=== PATIENT | female | born 1980 | race Caucasian/White ===

== ENCOUNTER 2022-11-30 20:15 | Inpatient (IN) | payer MEDICAID ==
[~2022-11-30] VITALS: Ht 154.9 cm; Wt 66.0 kg
[2022-11-30] MEDS ORDERED: LABETALOL HCL 5 MG/ML 4ML SYRINGE IV ONE ×2 (20:45→22:15)
[2022-11-30 21:05] LABS: Basophils # (auto) 0.1 10 ^3/uL (0-0.2); Eosinophils # (auto) 0.2 10 ^3/uL (0-0.8); Eosinophils % (auto) 3.6 % (0.0-7.0); Hematocrit 48.4 % (36.0-46.0); Hemoglobin 16.5 g/dL (12.2-16.2); Lymphocytes # (auto) 1.2 10 ^3/uL (0.4-5.4); Lymphocytes % (auto) 23.3 % (10.0-50.0); Mean Corpuscular Hemoglobin 32.6 pg (28.0-32.0); Mean Corpuscular Hgb Conc. 34.2 g/dL (32.0-36.0); Mean Corpuscular Volume 95.2 fL (80.0-100.0); Monocytes # (auto) 0.6 10 ^3/uL (0-1.3); Monocytes % (auto) 10.6 % (0.0-12.0); Neutrophils # (auto) 3.2 10 ^3/uL (1.6-8.6); Neutrophils % (auto) 61.5 % (37.0-80.0); Nucleated Red Blood Cells % 0.2 %; Red Blood Cells 5.08 10^6/uL (4.0-5.20); Red Cell Distribution Width 12.3 % (11.8-14.3); White Blood Cell 5.3 10^3/uL (4.4-10.8)
[2022-11-30 21:19] LABS: INR 0.87 (0.9-1.15); Partial Thromboplastin Time 29.2 sec (24.6-33.4)
[2022-11-30 21:23] LABS: Albumin 3.6 g/dL (3.4-5.0); Potassium 3.6 mmol/L (3.5-5.1)
[2022-11-30 21:28] LABS: BUN/Creatinine Ratio 10.3 (10.0-20.0); Bilirubin, Total 0.1 mg/dL (0.2-1.0); Magnesium 2.2 mg/dL (1.6-2.6); Total Protein 7.8 g/dL (6.4-8.2)
[2022-11-30 21:42] LABS: Urine Bacteria NONE SEEN /hpf (None Seen); Urine Blood Negative /uL (Negative); Urine Specific Gravity 1.012 (1.001-1.035); Urine WBC 1 /hpf (0 - 5)
[2022-11-30] MEDS ORDERED: MORPHINE SULFATE 4 MG/ML SYR/VIAL IV ONE (21:45)
[2022-11-30] MEDS ORDERED: ONDANSETRON HCL 4 MG/2 ML VIAL IV ONE (21:45)
[2022-12-01] VITALS (74 sets, daily range): BP systolic 114–155; BP diastolic 56–107
[2022-12-01] MEDS ORDERED: TEMAZEPAM 15 MG CAP PO PRN (01:30)
[2022-12-01] MEDS ORDERED: MORPHINE SULFATE INJ 2 MG/ml SYRG IV PRN (01:30)
[2022-12-01] MEDS ORDERED: ACETAMINOPHEN 325 MG TAB PO PRN (01:30)
[2022-12-01] MEDS ORDERED: NITROGLYCERIN 0.4 MG SL TAB SL PRN (01:30)
[2022-12-01] MEDS ORDERED: ONDANSETRON HCL 4 MG/2 ML VIAL IV PRN (01:30)
[2022-12-01] MEDS: PANTOPRAZOLE 40 MG TAB PO SCH (09:53)
[2022-12-01] MEDS: ASPirin 81 mg TAB PO SCH (09:54)
[2022-12-01] MEDS ORDERED: chlordiazePOXIDE HCL 5 MG CAP PO PRN (10:15)
[2022-12-01] MEDS ORDERED: NIFEdipine ER 30 MG TAB PO ONE (10:30)
[2022-12-01] MEDS: guaiFENesin-CODEINE Liq 5 ML UD PO PRN ×2 (10:46→19:28)
[2022-12-01] MEDS: chlordiazePOXIDE HCL 5 MG CAP PO SCH ×3 (11:45→22:32)
[2022-12-01] MEDS: IPRATROPIUM BROM 0.5 MG/2.5ML INH SOL NEB SCH ×2 (11:55→19:08)
[2022-12-01] MEDS: ALBUTEROL SULF 2.5 MG/0.5ML(0.5%) NEB SOLN NEB SCH ×2 (11:55→19:08)
[2022-12-01] MEDS ORDERED: FOLIC ACID 1 MG, MULTIPLE VITAMIN 10 ML, MAGNESIUM SULF SDV 50% 8 MEQ, THIAMINE INJ 100... INJ SCH ×5 (12:00)
[2022-12-01] MEDS ORDERED: LISINOPRIL 20 MG TAB PO ONE (12:15)
[2022-12-01] MEDS ORDERED: NICOTINE 7MG/24HR TOPICAL PATCH TD ONE (12:15)
[2022-12-01 16:53] LABS: Amphetamine Screen, Urine POSITIVE (NEGATIVE); Barbiturate Scree,Urine NEGATIVE (NEGATIVE); Benzodiazephine Screen, Urine NEGATIVE (NEGATIVE); Cannabinoid Screen, Urine NEGATIVE (NEGATIVE)
[2022-12-01 17:01] LABS: Cocaine Screen, Urine NEGATIVE (NEGATIVE); Opiate Scree,Urine NEGATIVE (NEGATIVE); Phencyclidine Screen, Urine NEGATIVE (NEGATIVE)
[2022-12-01] MEDS: BUDESONIDE (INHALATION) 0.5 MG/2 ML NEB NEB SCH (19:09)
[2022-12-01] MEDS ORDERED: ATORVASTATIN 20 MG TAB PO SCH (22:00)
[2022-12-02] VITALS (40 sets, daily range): BP systolic 97–144; BP diastolic 60–80
[2022-12-02 04:38] LABS: Basophils # (auto) 0 10 ^3/uL (0-0.2); Basophils % (auto) 0.5 % (0.0-2.0); Eosinophils # (auto) 0.1 10 ^3/uL (0-0.8); Eosinophils % (auto) 1.2 % (0.0-7.0); Hematocrit 40.6 % (36.0-46.0); Lymphocytes # (auto) 1.7 10 ^3/uL (0.4-5.4); Lymphocytes % (auto) 20.4 % (10.0-50.0); Mean Corpuscular Hemoglobin 33.1 pg (28.0-32.0); Mean Corpuscular Hgb Conc. 34.5 g/dL (32.0-36.0); Mean Corpuscular Volume 95.9 fL (80.0-100.0); Monocytes # (auto) 0.6 10 ^3/uL (0-1.3); Monocytes % (auto) 7.7 % (0.0-12.0); Neutrophils # (auto) 5.7 10 ^3/uL (1.6-8.6); Neutrophils % (auto) 70.2 % (37.0-80.0); Red Blood Cells 4.24 10^6/uL (4.0-5.20); Red Cell Distribution Width 12.3 % (11.8-14.3); White Blood Cell 8.1 10^3/uL (4.4-10.8)
[2022-12-02 04:57] LABS: Albumin 2.5 g/dL (3.4-5.0); Calcium 8.3 mg/dL (8.5-10.1); Potassium 3.8 mmol/L (3.5-5.1)
[2022-12-02 05:01] LABS: BUN/Creatinine Ratio 13.4 (10.0-20.0); Bilirubin, Total 0.3 mg/dL (0.2-1.0); Total Protein 5.8 g/dL (6.4-8.2)
[2022-12-02] MEDS: chlordiazePOXIDE HCL 5 MG CAP PO SCH ×2 (06:13→11:53)
[2022-12-02] MEDS: guaiFENesin-CODEINE Liq 5 ML UD PO PRN (06:16)
[2022-12-02] MEDS: BUDESONIDE (INHALATION) 0.5 MG/2 ML NEB NEB SCH (07:40)
[2022-12-02] MEDS: ALBUTEROL SULF 2.5 MG/0.5ML(0.5%) NEB SOLN NEB SCH ×2 (08:10→11:58)
[2022-12-02] MEDS: IPRATROPIUM BROM 0.5 MG/2.5ML INH SOL NEB SCH ×2 (08:10→11:58)
[2022-12-02] MEDS ORDERED: NIFE1TAB31 PO (09:10)
[2022-12-02] MEDS ORDERED: THIA100T5 PO (09:10)
[2022-12-02] MEDS: PANTOPRAZOLE 40 MG TAB PO SCH (09:50)
[2022-12-02] MEDS: ASPirin 81 mg TAB PO SCH (09:52)
[2022-12-02] MEDS ORDERED: FOLIC ACID 1 MG TAB PO SCH (10:00)
[2022-12-02] MEDS ORDERED: NICOTINE 7MG/24HR TOPICAL PATCH TD SCH (10:00)
[2022-12-02] MEDS ORDERED: LISINOPRIL 20 MG TAB PO SCH (10:00)
[2022-12-02] MEDS ORDERED: THIAMINE 100mg/ml INJ (200mg/2ml VIAL) IV SCH (10:00)
[2022-12-02] MEDS ORDERED: NIFEdipine ER 30 MG TAB PO SCH (10:00)
[2022-12-02] MEDS ORDERED: MULTIPLE VITAMIN TAB PO SCH (10:00)
[2022-12-02] MEDS ORDERED: ALBUAER3 IN (11:06)
== END 2022-12-02 13:30 | disposition home or self-care (01) | DRG 199 ==
LOC: ER 20:15 → TELE 12-01 01:31 → ICU WEST 12-01 05:08
PROVIDERS: ADMIT Nurse Practitioner; ATTEND Nurse Practitioner Acute Care
DX: I16.1 Hypertensive emergency (principal); F10.239 Alcohol dependence with withdrawal, unspecified; F17.210 Nicotine dependence, cigarettes, uncomplicated; F15.10 Other stimulant abuse, uncomplicated; Y90.9 Presence of alcohol in blood, level not specified; I10 Essential (primary) hypertension; Z80.0 Family history of malignant neoplasm of digestive organs; Z90.710 Acquired absence of both cervix and uterus
CPT/HCPCS: 36415; 70450; 71045; 80053; 80307; 80320; 81001; 83735; 83880; 84443; 84484; 85025; 85610; 85730; 87081; 93005; 93306; 94640; 96374; 96375; G0378; J2405; J3490

== ENCOUNTER 2024-02-15 16:10 | Inpatient (IN) | payer MEDICAID ==
[~2024-02-15] VITALS: Ht 154.9 cm; Wt 67.0 kg
[~2024-02-15 16:10] MED LIST: ALBUAER3 IN; NIFE1TAB31 PO; THIA100T5 PO
[2024-02-15 16:38] VITALS: PULSE 84; RESP 19; O2SAT 96
[2024-02-15 16:47] LABS: Basophils # (auto) 0.1 10 ^3/uL (0-0.2); Basophils % (auto) 1.1 % (0.0-2.0); Eosinophils # (auto) 0.2 10 ^3/uL (0-0.8); Eosinophils % (auto) 2.1 % (0.0-7.0); Hematocrit 44.1 % (36.0-46.0); Hemoglobin 15.2 g/dL (12.2-16.2); Lymphocytes # (auto) 1.9 10 ^3/uL (0.4-5.4); Lymphocytes % (auto) 23.5 % (10.0-50.0); Mean Corpuscular Hemoglobin 32.2 pg (28.0-32.0); Mean Corpuscular Hgb Conc. 34.6 g/dL (32.0-36.0); Mean Corpuscular Volume 93.1 fL (80.0-100.0); Monocytes # (auto) 0.7 10 ^3/uL (0-1.3); Monocytes % (auto) 8.4 % (0.0-12.0); Neutrophils # (auto) 5.3 10 ^3/uL (1.6-8.6); Neutrophils % (auto) 64.9 % (37.0-80.0); Red Blood Cells 4.74 10^6/uL (4.0-5.20); Red Cell Distribution Width 12.9 % (11.8-14.3); White Blood Cell 8.2 10^3/uL (4.4-10.8)
[2024-02-15 17:16] LABS: Alanine Aminotransferase 37 U/L (7-40); Albumin 4.8 g/dL (3.2-4.8); Alkaline Phosphatase 129 U/L (46-116); Anion Gap 12 (5-15); Aspartate Aminotransferase 30 U/L (13-40); BUN/Creatinine Ratio 18.7 (10.0-20.0); Bilirubin, Total 0.4 mg/dL (0.2-1.0); Blood Urea Nitrogen 20 mg/dL (9-23); Carbon Dioxide 20 mmol/L (20-30); Chloride 107 mmol/L (98-107); Glucose 109 mg/dL (74-106); Potassium 3.5 mmol/L (3.5-5.1); Sodium 139 mmol/L (136-145); Total Protein 7.3 g/dL (5.7-8.2)
[2024-02-15] MEDS: LORazepam 2MG/ML-1ML VIAL IV ONE (18:20)
[2024-02-15 19:30] VITALS: PULSE 80; RESP 15; O2SAT 99
[2024-02-15] MEDS ORDERED: ACETAMINOPHEN 325 MG TAB PO PRN (22:00)
[2024-02-15] MEDS ORDERED: ONDANSETRON HCL 4 MG/2 ML VIAL IV PRN (22:00)
[2024-02-15] MEDS: ATORVASTATIN 20 MG TAB PO SCH (22:31)
[2024-02-15] MEDS ORDERED: MORPHINE SULFATE INJ 2 MG/ml SYRG IV PRN (23:00)
[2024-02-15] MEDS ORDERED: NITROGLYCERIN 0.4 MG SL TAB SL PRN (23:00)
[2024-02-16] VITALS (8 sets, daily range): BP systolic 113–155; BP diastolic 77–97; PULSE 56–85; RESP 18–20; TEMP 97.8–98.3; O2SAT 97–99
[2024-02-16 06:56] LABS: Anion Gap 5 (5-15); Carbon Dioxide 24 mmol/L (20-30); Chloride 108 mmol/L (98-107); Potassium 3.9 mmol/L (3.5-5.1); Sodium 137 mmol/L (136-145)
[2024-02-16 06:57] LABS: Calcium 9.1 mg/dL (8.5-10.1)
[2024-02-16 07:02] LABS: BUN/Creatinine Ratio 14.3 (10.0-20.0); Blood Urea Nitrogen 12 mg/dL (9-23); Glucose 86 mg/dL (74-106)
[2024-02-16] MEDS: ASPirin 81 mg TAB PO SCH (09:32)
[2024-02-16] MEDS: NIFEdipine ER 30 MG TAB PO SCH (09:33)
[2024-02-16] MEDS: TEMAZEPAM 15 MG CAP PO ONE (09:42)
[2024-02-16 17:29] LABS: Amphetamine Screen, Urine Pos (NEGATIVE); Barbiturate Scree,Urine Neg (NEGATIVE); Benzodiazephine Screen, Urine Neg (NEGATIVE); Cannabinoid Screen, Urine Neg (NEGATIVE); Cocaine Screen, Urine Neg (NEGATIVE); Opiate Scree,Urine Neg (NEGATIVE); Phencyclidine Screen, Urine Neg (NEGATIVE)
[2024-02-16] MEDS: THIAMINE 100mg/ml INJ (200mg/2ml VIAL) IV ONE (17:44)
[2024-02-16] MEDS: FOLIC ACID 1 MG TAB PO ONE (17:45)
[2024-02-16 18:04] LABS: Urine Bacteria FEW /hpf (None Seen); Urine Blood Negative /uL (Negative); Urine Clarity Turbid (Clear); Urine Color Light-Yellow (Yellow); Urine Mucus FEW (None Seen); Urine Protein, UAD TRACE (Negative); Urine Specific Gravity 1.022 (1.001-1.035); Urine Urobilinogen Normal (Negative); Urine WBC 33 /hpf (0 - 5)
[2024-02-16] MEDS: LORazepam 2MG/ML-1ML VIAL IV PRN (20:45)
[2024-02-17] VITALS (12 sets, daily range): BP systolic 126–150; BP diastolic 69–91; PULSE 59–66; RESP 12–20; TEMP 97.8–97.9; O2SAT 94–99
[2024-02-17 06:15] LABS: Basophils # (auto) 0.1 10 ^3/uL (0-0.2); Basophils % (auto) 0.8 % (0.0-2.0); Eosinophils # (auto) 0.2 10 ^3/uL (0-0.8); Eosinophils % (auto) 2.7 % (0.0-7.0); Hematocrit 39.4 % (36.0-46.0); Hemoglobin 13.4 g/dL (12.2-16.2); Lymphocytes # (auto) 1.9 10 ^3/uL (0.4-5.4); Lymphocytes % (auto) 25.1 % (10.0-50.0); Mean Corpuscular Hemoglobin 32.8 pg (28.0-32.0); Mean Corpuscular Volume 96.4 fL (80.0-100.0); Monocytes # (auto) 0.7 10 ^3/uL (0-1.3); Monocytes % (auto) 9.9 % (0.0-12.0); Neutrophils # (auto) 4.5 10 ^3/uL (1.6-8.6); Neutrophils % (auto) 61.5 % (37.0-80.0); Red Blood Cells 4.09 10^6/uL (4.0-5.20); Red Cell Distribution Width 12.5 % (11.8-14.3); White Blood Cell 7.4 10^3/uL (4.4-10.8)
[2024-02-17 06:30] LABS: INR 0.92 (0.9-1.15); Partial Thromboplastin Time 25.4 SEC (24.5-34.5); Prothrombin Time 9.8 sec (9.3-11.8)
[2024-02-17 06:35] LABS: Alanine Aminotransferase 23 U/L (7-40); Albumin 3.5 g/dL (3.2-4.8); Alkaline Phosphatase 99 U/L (46-116); Anion Gap 4 (5-15); Aspartate Aminotransferase 18 U/L (13-40); BUN/Creatinine Ratio 16.9 (10.0-20.0); Bilirubin, Total 0.3 mg/dL (0.2-1.0); Blood Urea Nitrogen 14 mg/dL (9-23); Calcium 8.8 mg/dL (8.5-10.1); Carbon Dioxide 26 mmol/L (20-30); Chloride 107 mmol/L (98-107); Glucose 93 mg/dL (74-106); Potassium 3.9 mmol/L (3.5-5.1); Sodium 137 mmol/L (136-145); Total Protein 5.6 g/dL (5.7-8.2)
[2024-02-17] MEDS ORDERED: HEPARIN SODIUM (PORCINE) 5000 UNITS/ML 1ML VIAL ONE (07:24)
[2024-02-17] MEDS ORDERED: IOHEXOL 350 MG/ML 100ML IJ ONE (07:25)
[2024-02-17] MEDS ORDERED: IODIXANOL 320MG/ML 100ML BTL IV ONE ×2 (07:25→07:41)
[2024-02-17] MEDS ORDERED: fentaNYL CITRATE 100 MCG/2 ML VL ONE (07:25)
[2024-02-17] MEDS ORDERED: MIDAZOLAM HCL 2MG/2ML 2ml VIAL (1mg/ml) ONE (07:25)
[2024-02-17] MEDS ORDERED: HEPARIN IN NS 1000Units/500mL 1,500 ML ONE (07:27)
[2024-02-17] MEDS ORDERED: LIDOCAINE 2%HCL (LOCAL ANESTH.) INJ 20ML MDV ONE ×2 (07:27→07:46)
[2024-02-17] MEDS ORDERED: VERAPAMIL 2.5MG/ML INJ 2ML VIAL IV ONE (07:27)
[2024-02-17] MEDS: CARVEDILOL 12.5 MG TAB PO SCH ×2 (10:00→22:21)
[2024-02-17] MEDS: THIAMINE 100mg/ml INJ (200mg/2ml VIAL) IV SCH (11:56)
[2024-02-17] MEDS: FOLIC ACID 1 MG TAB PO SCH (11:59)
[2024-02-17] MEDS: cefTRIAXone 1GM/50ML D5W 50 ML IV ONE (12:11)
[2024-02-17] MEDS: NIFEdipine ER 30 MG TAB PO SCH (22:21)
[2024-02-18 01:00] VITALS: BP 120/61; PULSE 60; RESP 17; TEMP 98; O2SAT 97
[2024-02-18 05:00] VITALS: BP 124/54; PULSE 58; RESP 18; TEMP 97.9; O2SAT 94
[2024-02-18 05:56] LABS: Triglycerides 139 mg/dL (< 150)
[2024-02-18 05:57] LABS: LDL Cholesterol 87 mg/dL (< 100)
[2024-02-18 05:58] LABS: Cholesterol 151 mg/dL (< 200); HDL Cholesterol 50 mg/dL (40-59)
[2024-02-18 08:00] VITALS: PULSE 63
[2024-02-18 09:00] VITALS: BP 144/83; PULSE 63; RESP 18; TEMP 98.5; O2SAT 97
[2024-02-18] MEDS: cefTRIAXone 1GM/50ML D5W 50 ML IV SCH (09:00)
[2024-02-18] MEDS ORDERED: CEPH250C PO (10:07)
[2024-02-18] MEDS ORDERED: NIFE1TAB30 PO (10:07)
== END 2024-02-18 15:00 | disposition home or self-care (01) | DRG 190 ==
LOC: ER 16:10 → EDBD 16:10 → EDUNIT# 16:10 → TELE 22:48 → TELE-EAST 22:48
PROVIDERS: ADMIT Internal Medicine; ATTEND Internal Medicine
PROC: 4A023N7 Measurement of Cardiac Sampling and Pressure, Left Heart, Percutaneous Approach (ICD-10-PCS; principal; 2024-02-17)
PROC: B211YZZ Fluoroscopy of Multiple Coronary Arteries using Other Contrast (ICD-10-PCS; 2024-02-17)
DX: I21.4 Non-ST elevation (NSTEMI) myocardial infarction (principal); I50.30 Unspecified diastolic (congestive) heart failure; I11.0 Hypertensive heart disease with heart failure; F10.10 Alcohol abuse, uncomplicated; I20.89 Other forms of angina pectoris; F17.210 Nicotine dependence, cigarettes, uncomplicated; F41.9 Anxiety disorder, unspecified; N39.0 Urinary tract infection, site not specified; Z79.82 Long term (current) use of aspirin; Z82.3 Family history of stroke; Z82.0 Family history of epilepsy and other diseases of the nervous system; Z80.0 Family history of malignant neoplasm of digestive organs; Z90.710 Acquired absence of both cervix and uterus
CPT/HCPCS: 36415; 71045; 80048; 80053; 80061; 80307; 81001; 83036; 84484; 84702; 85025; 85610; 85730; 86850; 86900; 86901; 87086; 93005; 93306; 93458; 99152; G0378; J2250; Q9967

== ENCOUNTER 2025-03-16 15:48 | Emergency (ER) | payer MEDICAID ==
[~2025-03-16] VITALS: Ht 167.6 cm; Wt 68.2 kg
[~2025-03-16 15:48] MED LIST changes: +CEPH250C PO; +NIFE1TAB30 PO
--- NOTE | 2025-03-16 16:03 | ED.PDOC ---
History of Present Illness HPI Comments 44 y/o F is BIBA for c/c anxiety, with associated shortness of breath. Per EMS report, patient has a significant history of anxiety, hypertension, homelessness, and polysubstance abuse. She called after beginning to experience symptoms, [place] after taking mushroom gummies today and drinking heavily last night at a bar. Patient denies any chest pain, palpitations, dizziness, lightheadedness, dehydration, or further associated symptoms. Was hypertensive, tachycardic and tachypneic at arrival. Chief Complaint: Anxiety Time Seen by MD: 15:50 Primary Care Provider: BRADLEY Larson Notes: Nurses Notes, Stockroom Helper Notes, Medications, Allergies Allergies: Coded Allergies: NO KNOWN ALLERGIES (Unverified , 02/24/12) Home Meds Active Scripts Nifedipine (Nifedipine Er) 60 Mg Tab, 1 TAB PO BID for 30 Days, #60 TAB 5 Refills Prov:KELLIE JALLOH MD 02/18/24 Cephalexin (KEFLEX CAPSULE) 250 Mg Cp, 1 CAP PO TID for 5 Days, #15 CAP Prov:KELLIE JALLOH MD 02/18/24 Albuterol Sulfate (VENTOLIN MDI) 90 Mcg Ih, 90 MCG IN Q4HP PRN for 60 Days, #1 INH 2 puffs every 4 hours as needed dyspnea Prov:BENITA GUPTA NP 12/02/22 Thiamine Hcl (Thiamine Hcl) 100 Mg Tab, 1 TAB PO DAILY, #60 TAB 2 Refills Prov:BENITA GUPTA NP 12/02/22 Nifedipine (Nifedipine Er) 30 Mg Tab, 60 MG PO DAILY for 60 Days, #120 TAB Prov:BENITA GUPTA NP 12/02/22 Information Source: Patient, Emergency Med Personnel Mode of Arrival: Ambulatory Severity: Moderate Timing: Hours Duration: Since onset Prehospital treatment: 12 Lead EKG, Director [employer] Past Medical History PAST MEDICAL HISTORY: HTN Surgical History: Hysterectomy ROPER OPERATOR History: No Pertinent ROPER OPERATOR History Family History Family History: Reviewed,noncontributory to illness, No family hx of Heart jocelyne Social History Smoker: Cigarettes, Less Than 1 Pack/Day Alcohol: Heavy Drugs: Other Lives In: Home Constitutional: reports: weakness; denies: chills, diaphoresis, fatigue, fever, malaise, sweats, others EENTM: denies: blurred vision, double vision, ear bleeding, ear discharge, ear drainage, ear pain, ear ringing, eye pain, eye redness, hearing loss, mouth pain, mouth swelling, nasal discharge, nose bleeding, nose congestion, nose pain, photophobia, tearing, throat pain, throat swelling, voice changes, others Respiratory: reports: SOB at rest; denies: cough, hemoptysis, orthopnea, shortness of breath, SOB with excertion, stridor, wheezing, others Cardiovascular: denies: chest pain, dizzy spells, diaphoresis, Dyspnea on exertion, edema, irregular heart beat, left arm pain, lightheadedness, palpitations, PND, syncope, others Gastrointestinal: denies: abdomen distended, abdominal pain, blood streaked bowels, constipated, diarrhea, dysphagia, difficulty swallowing, hematemesis, melena, nausea, poor appetite, poor fluid intake, rectal bleeding, rectal pain, vomiting, others Genitourinary: denies: abnormal vagina bleeding, burning, dyspareunia, dysuria, flank pain, frequency, hematuria, incontinence, pain, , vagina discharge, urgency, others Neurological: denies: dizziness, fainting, headache, left sided numbness, left sided weakness, numbness, paresthesia, pre-existing deficit, right sided numbness, right sided weakness, seizure, speech problems, tingling, tremors, weakness, others Musculoskeletal: denies: back pain, gout, joint pain, joint swelling, muscle pain, muscle stiffness, neck pain, others Integumetry: denies: bruises, change in color, change in hair/nails, dryness, laceration, lesions, lumps, rash, wounds, others Allergic/Immunocompromised: denies: Difficulty Healing, Frequent Infections, Hives, Itching, others Hematologic/Lymphatic: denies: anemia, blood clots, easy bleeding, easy bruising, swollen glands, others Endocrine: denies: excessive hunger, excessive sweating, excessive thirst, excessive urination, flushing, intolerance to cold, intolerance to heat, unexplained weight gain, unexplained weight loss, others Psychiatric: reports: anxiety, depression; denies: bipolar disorder, hopeless, panic disorder, schizophrenia, sleepless, suicidal, others All Other Systems: Reviewed and Negative (Comprehensive review of systems are negative unless otherwise stated in HPI) Physical Exam General Appearance: Moderate Distress (Patient was in moderate distress due to anxiety related issues. Patient was tearful at time of evaluation.), Normal HEENT: Normal ENT Inspection, Pharynx Normal, TMs Normal Neck: Full Range of Motion, Non-Tender, Normal, Normal Inspection Respiratory: Chest Non-Tender, Lungs Clear, No Accessory Muscle Use, No Respiratory Distress, Normal Breath Sounds Cardiovascular: No Edema, No JVD, No Murmur, No Gallop, Normal Peripheral Pulses, Regular Rate/Rhythm Breast Exam: Deferred Gastrointestinal: No Organomegaly, Non Tender, No Pulsatile Mass, Normal Bowel Sounds, Soft Genitalia: Deferred Pelvic: Deferred Rectal: Deferred Extremities: No calf tenderness, Normal capillary refill, Normal inspection, Normal range of motion, Non-tender, No pedal edema Neurologic: Alert Cerebellar Function: NOT DONE Reflexes: NOT DONE Skin: Dry, Normal Color, Warm Lymphatic: No Adenopathy Was a procedure done? Was a procedure done?: No Differential Dx Considerations may include: anxiety, polysubstance abuse/dependency, dehydration, electrolyte imbalance, panic attack, among others X-Ray, Labs, Meds, VS Vital Signs Date Time Temp Pulse Resp B/P (MAP) Pulse Ox O2 Delivery O2 Flow Rate FiO2 03/16/25 17:36 97.8 86 16 141/80 (100) 95 97.8 03/16/25 17:36 86 16 95 Room Air 03/16/25 15:55 98.0 103 22 150/82 94 98.0 Lab Test 03/16/25 17:28 03/16/25 16:44 Range/Units Urine Color Light-yellow Yellow Urine Clarity Clear Clear Urine pH 5.0 5.0-9.0 Urine Specific [place] 1.015 1.001-1.035 Urine Protein Negative Negative Urine Ketones 1+ H Negative Urine Blood Negative Negative /uL Urine Nitrite Negative Negative Urine Bilirubin Negative Negative Urine Urobilinogen Normal Negative mg/dL Urine Leukocyte Esterase Negative Negative /uL Urine Glucose Normal Normal mg/dL White Blood Count 8.3 4.4-10.8 10^3/uL Red Blood Count 4.73 4.0-5.20 10^6/uL Hemoglobin 15.0 12.2-16.2 g/dL Hematocrit 44.1 36.0-46.0 % Mean Corpuscular Volume 93.4 80.0-100.0 fL Mean Corpuscular Hemoglobin 31.7 28.0-32.0 pg Mean Corpuscular Hemoglobin Concent 33.9 32.0-36.0 g/dL Red Cell Distribution Width 12.7 11.8-14.3 % Platelet Count 251 140-450 10^3/uL Mean Platelet Volume 9.2 6.9-10.8 fL Neutrophils (%) (Auto) 61.7 37.0-80.0 % Lymphocytes (%) (Auto) 25.7 10.0-50.0 % Monocytes (%) (Auto) 8.5 0.0-12.0 % Eosinophils (%) (Auto) 2.7 0.0-7.0 % Basophils (%) (Auto) 1.4 0.0-2.0 % Neutrophils # (Auto) 5.1 1.6-8.6 10 ^3/uL Lymphocytes # (Auto) 2.1 0.4-5.4 10 ^3/uL Monocytes # (Auto) 0.7 0-1.3 10 ^3/uL Eosinophils # (Auto) 0.2 0-0.8 10 ^3/uL Basophils # (Auto) 0.1 0-0.2 10 ^3/uL Nucleated Red Blood Cells 0.1 % Sodium Level 143 136-145 mmol/L Potassium Level 3.6 3.5-5.1 mmol/L Chloride Level 108 H 98-107 mmol/L Carbon Dioxide Level 19 L 20-31 mmol/L Anion Gap 16 H 5-15 Blood Urea Nitrogen 19 9-23 mg/dL Creatinine 1.02 0.550-1.02 mg/dL Glomerular Filtration Rate Calc 70 >90 mL/min BUN/Creatinine Ratio 18.6 10.0-20.0 Serum Glucose 91 74-106 mg/dL Calcium Level 9.2 8.7-10.4 mg/dL Current Medications Medications (Trade) Dose Ordered Sig/Sandy Route Start Time Stop Time Status Last Admin Sodium Chloride 1,000 ml @ 1,000 mls/hr Q1H ONCE IV 03/16/25 16:00 03/16/25 16:59 DC 03/16/25 17:29 Alprazolam (Xanax Tablet) 0.5 mg ONCE ONCE PO 03/16/25 16:00 03/16/25 16:01 DC 03/16/25 17:26 X-Ray, Labs, Meds, VS Comment All studies performed the ED were evaluated by me personally. Laboratories and urinalysis were unremarkable for any systemic concerns. Patient appears to be suffering from anxiety due to illicit drug use. Patient was provided with some Xanax to aid in her anxiety as well as fluid resuscitation. Social service is not at the facility today and therefore, unable to provide a social service consult for the patient. Advised to return to ED on Tuesday if she would like to have assistance with housing concerns. Time of 1ST Reevaluation: 19:21 Reevaluation 1ST: Improved Consultation: PCP Patient Education/Counseling: Diagnosis, Treatment, Need For Follow Up Family Education/Counseling: Diagnosis, Treatment, No Family Present SEPSIS Sepsis Screen Recent Procedure: No On Antibiotic Therapy: No Respiratory Rate >20: No Heart Rate >90: No Temp<36 C (96.8 F) or >38.3 C: No SBP <90 or MAP <65 mmHG: No New Acute Mental Status Change: No Is the patient on CPAP, BIPAP,: No Physician Orders Heplock Iv (03/16/25 ) * Nurse Discharge Planner Consult (03/16/25 ) Vital Signs Date Time Temp Pulse Resp B/P (MAP) Pulse Ox O2 Delivery O2 Flow Rate FiO2 03/16/25 17:36 97.8 86 16 141/80 (100) 95 97.8 03/16/25 17:36 86 16 95 Room Air 03/16/25 15:55 98.0 103 22 150/82 94 98.0 Laboratory Tests Test 03/16/25 16:44 White Blood Count 8.3 10^3/uL (4.4-10.8) Medications Medications Dose Ordered Sig/Sandy Route Start Time Stop Time Status Last Admin Dose Admin Alprazolam 0.5 mg ONCE ONCE PO 03/16/25 16:00 03/16/25 16:01 DC 03/16/25 17:26 Sodium Chloride 1,000 ml @ 1,000 mls/hr Q1H ONCE IV 03/16/25 16:00 03/16/25 16:59 DC 03/16/25 17:29 Departure 1 Departure Time of Disposition: 19:21 Impression: Primary Impression: Anxiety Additional Impression: Illicit drug use Disposition: HOME / SELF CARE / HOMELESS Condition: Stable Additional Instructions: Advised patient utilize medication as needed and additionally, patient can return to this facility on Tuesday if she would like assistance with housing concerns. Patient should practice good hydration and healthy nutrition. Patient should cease all alcohol and illicit drug use immediately and follow up with a support groups such as alcoholics anonymous and narcotics anonymous. e-Prescriptions Acetaminophen (Acetaminophen) 500 Mg Tab 500 MG PO Q4HP PRN, #20 TAB Prov: AMNJIT SPEARS PAC 03/16/25 Alprazolam (Xanax) 0.5 Mg Tb 1 TAB PO Q8HP PRN, #6 TAB Prov: MANJIT SPEARS PAC 03/16/25 Discharged With: Self, Friend Critical Care Note Critical Care Time?: No Stability Stability form required: No Heart Score Heart Score: Heart Score Response (Comments) Value History N/A 0 EKG N/A 0 Age N/A 0 Risk Factors N/A 0 Troponin N/A 0 Total 0 I personally scribed for MANJIT SPEARS PAC ([email or web address]) on 03/16/25 at 16:03. Electronically submitted by Noam Phillip ([email or web address]). MANJIT SPEARS PAC Mar 16, 2025 16:03
[2025-03-16 16:53] LABS: Hematocrit 44.1 % (36.0-46.0); Hemoglobin 15.0 g/dL (12.2-16.2); Mean Corpuscular Hemoglobin 31.7 pg (28.0-32.0); Mean Corpuscular Volume 93.4 fL (80.0-100.0); Nucleated Red Blood Cells % 0.1 %
[2025-03-16 17:00] LABS: Potassium 3.6 mmol/L (3.5-5.1); Sodium 143 mmol/L (136-145)
[2025-03-16 17:02] LABS: Anion Gap 16 (5-15); Calcium 9.2 mg/dL (8.7-10.4)
[2025-03-16 17:03] LABS: Carbon Dioxide 19 mmol/L (20-31); Chloride 108 mmol/L (98-107)
[2025-03-16 17:07] LABS: BUN/Creatinine Ratio 18.6 (10.0-20.0); Blood Urea Nitrogen 19 mg/dL (9-23); Glucose 91 mg/dL (74-106)
[2025-03-16] MEDS: ALPRAZolam 0.5 MG TAB PO ONE (17:26)
[2025-03-16] MEDS: SODIUM CHLORIDE 0.9% 1,000 ML IV ONE (17:29)
[2025-03-16 17:36] VITALS: BP 141/80; PULSE 86; RESP 16; TEMP 97.8; O2SAT 95
[2025-03-16 19:08] LABS: Urine Protein, UAD Negative (Negative)
[2025-03-16] MEDS ORDERED: ALPR0.5T PO (19:23)
[2025-03-16] MEDS ORDERED: ACET500T58 PO (19:23)
== END 2025-03-16 19:30 | disposition home or self-care (01) ==
LOC: EDBD 15:48 → EDSEX 15:48 → ER 15:48
DX: F19.10 Other psychoactive substance abuse, uncomplicated (principal); F41.9 Anxiety disorder, unspecified; I10 Essential (primary) hypertension; F17.210 Nicotine dependence, cigarettes, uncomplicated; Z79.899 Other long term (current) drug therapy; Z90.710 Acquired absence of both cervix and uterus
CPT/HCPCS: 36415; 80048; 81003; 85025; 96360; 99283; J7030

== ENCOUNTER 2025-05-12 13:46 | Emergency (ER) | payer MEDICAID ==
[~2025-05-12] VITALS: Ht 175.3 cm; Wt 69.3 kg
[~2025-05-12 13:46] MED LIST changes: +ACET500T58 PO; +ALPR0.5T PO
--- NOTE | 2025-05-12 15:59 | ED.PDOC ---
GI ASSESSMENT HPI Comments 44 y/o F, with PMHx of HTN presents to the ED for CC of abdominal pain. Patient states, she has been experiencing suprapubic abdominal pain x2days with associated blood stools x1day. Patient further relays, feeling febrile and having intermittent chills. Patient denies nausea, vomiting, diarrhea, fatigue, or weakness. No other symptoms or modifying factors are present at this time. Chief Complaint: Abdominal Pain Time Seen by MD: 15:40 Primary Care Provider: BRADLEY Larson Notes: Nurses Notes, Medications, Allergies Allergies: Coded Allergies: NO KNOWN ALLERGIES (Unverified , 02/24/12) Home Meds Active Scripts Acetaminophen (Acetaminophen) 500 Mg Tab, 500 MG PO Q4HP PRN, #20 TAB Prov:MANJIT SPEARS PAC 03/16/25 Alprazolam (Xanax) 0.5 Mg Tb, 1 TAB PO Q8HP PRN, #6 TAB Prov:MANJIT SPEARS PAC 03/16/25 Nifedipine (Nifedipine Er) 60 Mg Tab, 1 TAB PO BID for 30 Days, #60 TAB 5 Refills Prov:KELLIE JALLOH MD 02/18/24 Cephalexin (KEFLEX CAPSULE) 250 Mg Cp, 1 CAP PO TID for 5 Days, #15 CAP Prov:KELLIE JALLOH MD 02/18/24 Albuterol Sulfate (VENTOLIN MDI) 90 Mcg Ih, 90 MCG IN Q4HP PRN for 60 Days, #1 INH 2 puffs every 4 hours as needed dyspnea Prov:BENITA GUPTA NP 12/02/22 Thiamine Hcl (Thiamine Hcl) 100 Mg Tab, 1 TAB PO DAILY, #60 TAB 2 Refills Prov:BENITA GUPTA NP 12/02/22 Nifedipine (Nifedipine Er) 30 Mg Tab, 60 MG PO DAILY for 60 Days, #120 TAB Prov:BENITA GUPTA NP 12/02/22 Information Source: Patient Mode of Arrival: Ambulatory Timing: Days Duration: Since onset Prehospital treatment: None Vomitus: None Stool: Blood Streaked Severity: Moderate Recent: None Recent Hx of: None Pain Location: Suprapubic Modifying Factors: Nothing Associated sign and symptoms: Abdominal Pain, Blood in Stool Past Medical History PAST MEDICAL HISTORY: HTN Surgical History: Hysterectomy SPIRITUAL CARE COORDINATOR History: No Pertinent SPIRITUAL CARE COORDINATOR History Family History Family History: Reviewed,noncontributory to illness, No family hx of Heart jocelyne Social History Smoker: Cigarettes, Less Than 1 Pack/Day Alcohol: Heavy Drugs: Other Lives In: Home Constitutional: denies: chills, diaphoresis, fatigue, fever, malaise, sweats, w eakness, others EENTM: denies: blurred vision, double vision, ear bleeding, ear discharge, ear drainage, ear pain, ear ringing, eye pain, eye redness, hearing loss, mouth pain, mouth swelling, nasal discharge, nose bleeding, nose congestion, nose pain, photophobia, tearing, throat pain, throat swelling, voice changes, others Respiratory: denies: cough, hemoptysis, orthopnea, SOB at rest, shortness of breath, SOB with excertion, stridor, wheezing, others Cardiovascular: denies: chest pain, dizzy spells, diaphoresis, Dyspnea on exertion, edema, irregular heart beat, left arm pain, lightheadedness, palpitations, PND, syncope, others Gastrointestinal: reports: abdominal pain, others (bloody stools); denies: abdomen distended, blood streaked bowels, constipated, diarrhea, dysphagia, difficulty swallowing, hematemesis, melena, nausea, poor appetite, poor fluid intake, rectal bleeding, rectal pain, vomiting Genitourinary: denies: abnormal vagina bleeding, burning, dyspareunia, dysuria, flank pain, frequency, hematuria, incontinence, pain, , vagina discharge, urgency, others Neurological: denies: dizziness, fainting, headache, left sided numbness, left sided weakness, numbness, paresthesia, pre-existing deficit, right sided numbness, right sided weakness, seizure, speech problems, tingling, tremors, weakness, others Musculoskeletal: denies: back pain, gout, joint pain, joint swelling, muscle pain, muscle stiffness, neck pain, others Integumetry: denies: bruises, change in color, change in hair/nails, dryness, laceration, lesions, lumps, rash, wounds, others Allergic/Immunocompromised: denies: Difficulty Healing, Frequent Infections, Hives, Itching, others Hematologic/Lymphatic: denies: anemia, blood clots, easy bleeding, easy bruising, swollen glands, others Endocrine: denies: excessive hunger, excessive sweating, excessive thirst, excessive urination, flushing, intolerance to cold, intolerance to heat, unexplained weight gain, unexplained weight loss, others Psychiatric: denies: anxiety, bipolar disorder, depression, hopeless, panic disorder, schizophrenia, sleepless, suicidal, others All Other Systems: Reviewed and Negative Physical Exam General Appearance: Moderate Distress HEENT: Normal ENT Inspection, Pharynx Normal, TMs Normal Neck: Full Range of Motion, Non-Tender, Normal, Normal Inspection Respiratory: Chest Non-Tender, Lungs Clear, No Accessory Muscle Use, No Respiratory Distress, Normal Breath Sounds Cardiovascular: No Edema, No JVD, No Murmur, No Gallop, Normal Peripheral Pulses, Regular Rate/Rhythm Breast Exam: Deferred Gastrointestinal: LLQ, No Organomegaly, No Pulsatile Mass, Normal Bowel Sounds, Soft, Suprapubic, Tenderness Genitalia: Deferred Pelvic: Deferred Rectal: Deferred Extremities: No calf tenderness, Normal capillary refill, Normal inspection, Normal range of motion, Non-tender, No pedal edema Musculoskeletal : Apperance: Normal Neurologic: Alert, counseling aide II-XII nml as Tested, Motor Weakness, Normal Affect, Normal Mood, No Sensory Deficits Cerebellar Function: Normal Reflexes: Normal Skin: Dry, Pallor, Warm Lymphatic: No Adenopathy Was a procedure done? Was a procedure done?: No GI differential Dx Differential Diagnosis: Bowel Obstruction, Diverticular disease, Gastritis/PUD, Gastroenteritis, GI hemorrhage, Inflammatory BD X-Ray, Labs, Meds, VS Vital Signs Date Time Temp Pulse Resp B/P (MAP) Pulse Ox O2 Delivery O2 Flow Rate FiO2 05/12/25 16:24 84 16 160/104 05/12/25 16:13 84 16 160/104 (122) 99 05/12/25 13:48 97.6 92 18 168/105 99 97.6 Lab Test 05/12/25 15:55 05/12/25 15:33 Range/Units White Blood Count 9.4 4.4-10.8 10^3/uL Red Blood Count 4.97 4.0-5.20 10^6/uL Hemoglobin 15.9 12.2-16.2 g/dL Hematocrit 46.6 H 36.0-46.0 % Mean Corpuscular Volume 93.7 80.0-100.0 fL Mean Corpuscular Hemoglobin 32.0 28.0-32.0 pg Mean Corpuscular Hemoglobin Concent 34.2 32.0-36.0 g/dL Red Cell Distribution Width 12.7 11.8-14.3 % Platelet Count 257 140-450 10^3/uL Mean Platelet Volume 9.4 6.9-10.8 fL Neutrophils (%) (Auto) 67.9 37.0-80.0 % Lymphocytes (%) (Auto) 20.3 10.0-50.0 % Monocytes (%) (Auto) 7.5 0.0-12.0 % Eosinophils (%) (Auto) 3.4 0.0-7.0 % Basophils (%) (Auto) 0.9 0.0-2.0 % Neutrophils # (Auto) 6.4 1.6-8.6 10 ^3/uL Lymphocytes # (Auto) 1.9 0.4-5.4 10 ^3/uL Monocytes # (Auto) 0.7 0-1.3 10 ^3/uL Eosinophils # (Auto) 0.3 0-0.8 10 ^3/uL Basophils # (Auto) 0.1 0-0.2 10 ^3/uL Nucleated Red Blood Cells 0.0 % Sodium Level 139 136-145 mmol/L Potassium Level 3.8 3.5-5.1 mmol/L Chloride Level 104 98-107 mmol/L Carbon Dioxide Level 27 20-31 mmol/L Anion Gap 8 5-15 Blood Urea Nitrogen 9 9-23 mg/dL Creatinine 0.85 0.550-1.02 mg/dL Glomerular Filtration Rate Calc 87 >90 mL/min BUN/Creatinine Ratio 10.6 10.0-20.0 Serum Glucose 101 74-106 mg/dL Calcium Level 9.2 8.7-10.4 mg/dL Total Bilirubin 0.5 0.2-1.0 mg/dL Aspartate Amino Transferase (AST) 38 13-40 U/L Alanine Aminotransferase (ALT) 44 H 7-40 U/L Alkaline Phosphatase 141 H 46-116 U/L Total Protein 7.5 5.7-8.2 g/dL Albumin 4.4 3.2-4.8 g/dL Lipase 33 12-53 U/L Urine Color Yellow Yellow Urine Clarity Clear Clear Urine pH 5.5 5.0-9.0 Urine Specific [place] 1.022 1.001-1.035 Urine Protein Trace H Negative Urine Ketones Trace Negative Urine Blood Trace H Negative /uL Urine Nitrite Negative Negative Urine Bilirubin Negative Negative Urine Urobilinogen Normal Negative mg/dL Urine Leukocyte Esterase Negative Negative /uL Urine RBC 1 0 - 4 /hpf Urine Microscopic WBC 3 0-5 /HPF Urine Squamous Epithelial Cells Few <5 /hpf Urine Bacteria Few H None Seen /hpf Urine Hyaline Casts Few 0 - 2 /lpf Urine Mucus Few None Seen Urine Glucose Normal Normal mg/dL Current Medications Medications (Trade) Dose Ordered Sig/Sandy Route Start Time Stop Time Status Last Admin Ondansetron HCl (Zofran) 4 mg ONCE ONCE IV 05/12/25 16:00 05/12/25 16:01 DC 05/12/25 16:23 Morphine Sulfate 4 mg ONCE ONCE IV 05/12/25 16:00 05/12/25 16:01 DC 05/12/25 16:24 CT ABD PEL: IMPRESSION: Colitis involving the Descending colon and Sigmoid. The patient has colitis in his being started on Flagyl The patient was given morphine 4 mg IV push for the pain The patient was given Zofran for the nausea The patient's urine test is negative The patient's CBC and chemistry panel is within normal limits At this time, the patient understands and agrees with the management. Images Reviewed?: Images reviewed and evaluated by me Time of 1ST Reevaluation: 16:10 Reevaluation 1ST: Unchanged Patient Education/Counseling: Diagnosis, Treatment, Prognosis Family Education/Counseling: No Family Present SEPSIS Sepsis Screen Date sepsis recognized/suspect: May 12, 2025 Time Sepsis recognized/suspect: 1348 Recent Procedure: No On Antibiotic Therapy: No Respiratory Rate >20: No Heart Rate >90: Yes Temp<36 C (96.8 F) or >38.3 C: No SBP <90 or MAP <65 mmHG: No New Acute Mental Status Change: No Is the patient on CPAP, BIPAP,: No Physician Orders Ct Ab Pel Wo Con-No Oral Or Iv (05/12/25 15:48) Heplock Iv (05/12/25 15:48) Vital Signs Date Time Temp Pulse Resp B/P (MAP) Pulse Ox O2 Delivery O2 Flow Rate FiO2 05/12/25 16:24 84 16 160/104 05/12/25 16:13 84 16 160/104 (122) 99 05/12/25 13:48 97.6 92 18 168/105 99 97.6 Laboratory Tests Test 05/12/25 15:55 White Blood Count 9.4 10^3/uL (4.4-10.8) Medications Medications Dose Ordered Sig/Sandy Route Start Time Stop Time Status Last Admin Dose Admin Morphine Sulfate 4 mg ONCE ONCE IV 05/12/25 16:00 05/12/25 16:01 DC 05/12/25 16:24 Ondansetron HCl 4 mg ONCE ONCE IV 05/12/25 16:00 05/12/25 16:01 DC 05/12/25 16:23 Departure 1 Departure Time of Disposition: 17:38 Impression: Primary Impression: Intractable abdominal pain Additional Impressions: Lower GI bleed Non-specific colitis Disposition: ADMITTED INPATIENT Admit to: Med Surg Condition: Fair Critical Care Note Critical Care Time?: No Stability Stability form required: Yes Unstable for transfer: ED Physician Assesment (Clinical assesment) Heart Score Heart Score: Heart Score Response (Comments) Value History N/A 0 EKG N/A 0 Age N/A 0 Risk Factors N/A 0 Troponin N/A 0 Total 0 I personally scribed for JHONY SHAHID MD ([email or web address]) on 05/12/25 at 15:59. Electronically submitted by Gris Martinez ([email or web address]). I personally scribed for JHONY SHAHID MD ([email or web address]) on 05/12/25 at 17:31. Electronically submitted by Gris Martinez [email or web address]). JHONY SHAHID MD May 12, 2025 15:59
[2025-05-12 16:15] LABS: Anion Gap 8 (5-15); BUN/Creatinine Ratio 10.6 (10.0-20.0); Blood Urea Nitrogen 9 mg/dL (9-23); Calcium 9.2 mg/dL (8.7-10.4); Carbon Dioxide 27 mmol/L (20-31); Chloride 104 mmol/L (98-107); Glucose 101 mg/dL (74-106); Lipase 33 U/L (12-53); Potassium 3.8 mmol/L (3.5-5.1); Sodium 139 mmol/L (136-145); Total Protein 7.5 g/dL (5.7-8.2)
[2025-05-12 16:16] LABS: Alanine Aminotransferase 44 U/L (7-40); Albumin 4.4 g/dL (3.2-4.8); Alkaline Phosphatase 141 U/L (46-116); Bilirubin, Total 0.5 mg/dL (0.2-1.0); Hematocrit 46.6 % (36.0-46.0); Hemoglobin 15.9 g/dL (12.2-16.2); Mean Corpuscular Hemoglobin 32.0 pg (28.0-32.0); Mean Corpuscular Volume 93.7 fL (80.0-100.0); Nucleated Red Blood Cells % 0.0 %
[2025-05-12 16:17] LABS: Urine Protein, UAD TRACE (Negative)
[2025-05-12] MEDS: ONDANSETRON HCL 4 MG/2 ML VIAL IV ONE (16:23)
[2025-05-12] MEDS: MORPHINE SULFATE 4 MG/ML SYR/VIAL IV ONE (16:24)
--- NOTE | 2025-05-12 16:25 | DVH ---
Exam: CT CT AB PEL WO CON-NO ORAL OR IV History: pain Comparison Study: None TECHNIQUE: Multidetector CT of the abdomen AND PELVIS without IV contrast. Axial, coronal and sagitta l multiplanar reformats were obtained from the axial data set by the technologist. Radiation Dose Information: CT Dose: CTDI volume is 6.31 mGy. Dose-length product is 340.49 mGy*cm FINDINGS: The lung bases are clear. Partially visualized heart is unremarkable. Liver, spleen, gallbladder, pancreas and adrenal glands unremarkable. Kidneys, and ureters unremarkable. Limited evaluation of the urinary bladder due to decompressed stat e. Uterus is not well-visualized. Question hysterectomy. Stomach is unremarkable. Small bowel loops are unremarkable. Appendix is unremarkable. Wall thickeni ng of the descending colon and sigmoid with adjacent fat stranding. Large amount fecal material withi n the ascending colon with moderate amount of fecal material within the transverse colon. Small amou nt fecal material within the remainder of the colon. No evidence of intraperitoneal free air or free fluid. No evidence of aortic aneurysm. No significant lymphadenopathy. Soft tissues are unremarkable. No evidence of acute osseous abnormalities. Sclerosis of the iliac seema e of the right SI joint. IMPRESSION: Colitis involving the Descending colon and Sigmoid.
[2025-05-12] MEDS ORDERED: PANTOPRAZOLE 40 MG/10 ML VIAL INJ IV ONE (22:00)
[2025-05-12] MEDS ORDERED: HYDROcodone-ACET 5/325MG TAB PO PRN (22:00)
[2025-05-12] MEDS ORDERED: SODIUM CHLORIDE 0.9% 1,000 ML IV SCH (22:00)
[2025-05-12] MEDS ORDERED: ONDANSETRON HCL 4 MG/2 ML VIAL IV PRN (22:00)
[2025-05-12] MEDS ORDERED: hydrALAZINE HCL 20 MG/ML VL IV PRN (22:00)
[2025-05-12] MEDS ORDERED: MORPHINE SULFATE INJ 2 MG/ml SYRG IV PRN (22:00)
[2025-05-12] MEDS ORDERED: DOCUSATE SOD 100 MG CAP PO PRN (22:00)
[2025-05-12] MEDS ORDERED: ACETAMINOPHEN 325 MG TAB PO PRN (22:00)
[2025-05-12 22:12] VITALS: BP 153/91; PULSE 78; RESP 16; TEMP 97.8; O2SAT 98
[2025-05-13] MEDS ORDERED: FOLIC ACID 1 MG TAB PO SCH (10:00)
[2025-05-13] MEDS ORDERED: PANTOPRAZOLE 40 MG/10 ML VIAL INJ IV SCH (10:00)
[2025-05-13] MEDS ORDERED: THIAMINE HCL 100 MG TAB PO SCH (10:00)
== END 2025-05-12 22:28 | disposition left against medical advice (07) ==
LOC: ER 13:46
DX: K92.2 Gastrointestinal hemorrhage, unspecified (principal); K52.9 Noninfective gastroenteritis and colitis, unspecified; R10.84 Generalized abdominal pain; I10 Essential (primary) hypertension; F17.210 Nicotine dependence, cigarettes, uncomplicated; Z79.899 Other long term (current) drug therapy; Z90.710 Acquired absence of both cervix and uterus
CPT/HCPCS: 36415; 74176; 80053; 81001; 83690; 85025; 96374; 96375; 99285; J2270; J2405; J2470